=== PATIENT | male | born 1975 | race Caucasian/White ===

== ENCOUNTER 2021-12-09 22:40 | Emergency (ER) | payer MEDICARE, MEDICAID, SELFPAY ==
--- NOTE | ~2021-12-09 | XR_ITS ---
EXAMINATION: XR WRIST, LEFT CLINICAL INFORMATION: Wrist pain and swelling COMPARISON: None TECHNIQUE: PA, lateral, and oblique views of the left wrist. FINDINGS: The bones and soft tissues are unremarkable. A bone island is present in the lunate. No fracture. Alignment is anatomic with normal joint spaces. No erosions or abnormal soft tissue calcifications. XR/XR wrist LT min 3V IMPRESSION: Unremarkable left wrist.
[2021-12-09 23:45] VITALS: BP 144/87; PULSE 96; RESP 18; TEMP 36.3; O2SAT 98; BMI 26.6
--- NOTE | 2021-12-10 00:22 | ED_ITS ---
HPI - Extremity Problem General Chief complaint: Extremity Problem Stated complaint: left hand burning and tingling Source: patient Mode of arrival: ambulatory Limitations: no limitations History of Present Illness HPI Narrative: 46-year-old male presents with several weeks of left wrist pain. States that he has intermittent swelling, and has a difficult time flexing extending it. He does not report any trauma, or repetitive motions. States that his pain is unbearable tonight. Does not report fevers or chills, or decreased range of motion to the digits or elbow. MD Complaint: extremity pain and extremity swelling Onset (ago): week(s) (6) Pain Consistency: constant and intermittent Location: left and upper extremity Severity scale (1-10): 7 Quality: aching Relieving factors: immobilization Exacerbating factors: range of motion and palpation Associated symptoms: denies other symptoms Related Data Allergies Allergy/AdvReac Type Severity Reaction Status Date / Time No Known Allergies Allergy Verified 12/09/21 23:45 Review of Systems Review of Systems: Constitutional: No Fever, No Chills ENT/Mouth: No Ear Pain, No Hoarseness, No sore throat Eyes: No Eye Pain, No Swelling, No Redness, No Foreign Body Cardiovascular: No Chest Pain, No SOB Respiratory: No Cough, No Dyspnea Gastrointestinal: No Nausea, No Vomiting, No Diarrhea, No abdominal Pain Genitourinary: No Dysuria, No Hematuria Musculoskeletal: positive left wrist pain, No Myalgias, No Joint Swelling Skin: No Skin lacerations, No rash Neuro: No Weakness, No Numbness, No Paresthesias, No Loss of Consciousness, No Dizziness, No Headache Psych: No Anxiety/Panic, No Depression Heme/Lymph: no easy bruising, no Lymphadenopathy Endocrine: No Polyuria, No Polydipsia Yes all other systems are reviewed and are negative PENDING SALE TO [facility] Past Medical History Attestation statement: The following information was validated with the patient. Source: old records reviewed Social History Social History Advance Directives: No Advance Directives Information Provided: Yes Physical Exam Vital Signs: Vital Signs: Last Vital Signs Temp 97.8 F 12/10/21 00:31 Pulse 99 12/10/21 00:31 Resp 16 12/10/21 00:31 BP 136/80 12/10/21 00:31 Pulse Ox 98 12/10/21 00:31 O2 Del Method 12/10/21 00:31 BMI result Body Mass Index 26.6 Appearance: Alert. Oriented X3. No acute distress. Eyes: Pupils equal, round and reactive to light. ENT: Pharynx normal. Neck: Normal inspection. Neck supple. CVS: Normal heart rate and rhythm. Pulses normal. Respiratory: No respiratory distress. Breath sounds normal. Abdomen: Soft and nontender. Skin: Skin warm and dry. Normal skin color. Normal skin turgor. Extremities: Full range of motion to all digits, elbows and shoulders. Full flexion extension pronation and supination of the wrist. Brisk capillary refill in equal pulses. Tenderness noted to the dorsal aspect between the radius and ulna of the left hand. Neuro: No motor deficit. No sensory deficit. Cranial nerves 2-12 intact. Course Course Course Narrative: 46-year-old male presents with several weeks of left wrist pain and swelling. Does not report any trauma, and states to have difficulty flexing extending the left wrist. I do not appreciate any swelling, bruising, or decreased range of motion. Will order x-rays. X-rays indicate bony island but no acute injury. Will refer to Dr. Gaviria. Plan of care discharge home with supportive measures. Patient verbalized understanding of and agrees plan of care discharge home. MDM - Extremity (Nontraumatic) MDM Narrative Medical decision making narrative: Dislocation, fracture, effusion Differential Diagnosis Differential diagnosis: Likely cellulitis Imaging Data Left wrist: Attestation: I personally reviewed and interpreted this imaging study as follows: Radiologist's impression: EXAMINATION: XR WRIST, LEFT CLINICAL INFORMATION: Wrist pain and swelling? COMPARISON: None? TECHNIQUE: PA, lateral, and oblique views of the left wrist. FINDINGS: The bones and soft tissues are unremarkable. A bone island is present in the lunate. No fracture. Alignment is anatomic with normal joint spaces. No erosions or abnormal soft tissue calcifications.? XR/XR wrist LT min 3V IMPRESSION: Unremarkable left wrist. Discharge Plan Discharge Clinical Impression: Chronic pain of left wrist Patient Disposition: Home, Self-Care Instructions: Wrist Injury (ED), R.I.C.E. Treatment (ED) Additional Instructions: You were evaluated for left wrist pain. X-rays indicate bony island, without acute findings. There are no fractures effusions or dislocations. Please follow-up with your primary care physician as needed. Take Tylenol 650 mg every 6 hours as needed and Motrin 600 mg every 6 hours as needed for pain management. Write down what you take these medications to prevent accidental overdose. Rest ice and and elevate. If ice is uncomfortable you may use heat. If pain persists, consider following up with orthopedics. I have referred her to Dr. Gaviria. Please call in question non emergent evaluation. Thank you for choosing this emergency department for evaluation. Please follow-up with primary care physician as needed. Return to the emergency department for any new, concerning, or worsening symptoms. Referrals: Kat Gaviria MD [Physician] - 2 weeks (Bony island to the left wrist) Interventions: ED Discharge Assessment Last Done: 12/10/21 01:35 Discharge Date/Time: 12/10/21 01:36
[2021-12-10 00:31] VITALS: BP 136/80; PULSE 99; RESP 16; TEMP 36.6; O2SAT 98
== END 2021-12-10 01:36 | disposition home or self-care (01) ==
PROVIDERS: Emergency Provider Emergency Medicine
DX: G89.29 Other chronic pain (principal); M25.532 Pain in left wrist
CPT/HCPCS: 73110; 99283

== ENCOUNTER → 2022-01-13 14:49 | Outpatient (BNVA) | payer MEDICARE, MEDICAID, SELFPAY | PROVIDERS: Visit Provider Physician Assistant | DX: M25.532 Pain in left wrist (principal) | CPT/HCPCS: 99202 ==

== ENCOUNTER 2022-04-06 09:08 | Outpatient (REF) | payer MEDICARE, MEDICAID, SELFPAY | END 2022-04-06 09:09 | disposition home or self-care (01) | LOC: HO.HOSX 09:08 | PROVIDERS: Visit Provider Orthopaedic Surgery | DX: Z13.89 Encounter for screening for other disorder (principal) ==